=== PATIENT | female | born 1945 | race Hispanic/Latino ===

== ENCOUNTER 2022-08-30 11:30 | Emergency (ER) | payer OTHER, MEDICARE ==
[~2022-08-30] VITALS: Ht 157.5 cm; Wt 56.7 kg
[~2022-08-30 11:30] MED LIST: AEC81 PO; AMLO-258 PO; CARV6.2579 PO; GLIP5TAB11 PO; METF-444 PO
[2022-08-30 11:40] VITALS: BP 162/71
[2022-08-30] MEDS ORDERED: 0.9%NACL 1000ML 1,000 ML IV ONE (12:30)
[2022-08-30 12:48] LABS: BASOPHILS % (AUTO) 0.6 % (0.0-5.0); EOSINOPHILS % (AUTO) 1.6 % (0.0-8.0); HEMATOCRIT 37.3 % (36-48); LYMPHOCYTES % (AUTO) 15.6 % (21.0-51.0); MEAN CORPUSCULAR HEMOGLOBIN 30.4 pg (27.0-33.0); MEAN CORPUSCULAR HGB CONC 33.2 g/dL (32.0-36.0); MEAN CORPUSCULAR VOLUME 91.4 fL (79-99); MONOCYTES % (AUTO) 5.7 % (3.0-13.0); NEUTROPHILS % (AUTO) 76.2 % (40.0-77.0); PLATELET COUNT (AUTO) 318 K/uL (130-400); RED BLOOD CELL COUNT(AUTO) 4.08 MIL/uL (4.00-5.50); RED CELL DISTRIBUTION WIDTH 13.8 % (11.0-15.5)
[2022-08-30 13:02] LABS: CREATININE 0.8 mg/dL (0.5-1.5); POTASSIUM 4.2 mmol/L (3.5-5.1)
[2022-08-30 13:10] LABS: ALBUMIN 4.1 g/dL (3.5-5.0); TOTAL PROTEIN, SERUM 8.2 g/dL (6.0-8.3)
[2022-08-30] MEDS ORDERED: MECL-160 PO (14:09)
== END 2022-08-30 15:00 | disposition home or self-care (01) ==
LOC: EDH 11:30
DX: R42 Dizziness and giddiness (principal); E11.9 Type 2 diabetes mellitus without complications; I10 Essential (primary) hypertension; Z79.82 Long term (current) use of aspirin; Z79.84 Long term (current) use of oral hypoglycemic drugs
CPT/HCPCS: 99284; 96360; 70450; 82550; 83874; 84484; 80053; 85025; 36415; 93005; J7030

== ENCOUNTER 2023-08-13 20:28 | Inpatient (IN) | payer OTHER, MEDICARE ==
[~2023-08-13] VITALS: Ht 152.4 cm; Wt 55.3 kg
[~2023-08-13 20:28] MED LIST changes: -GLIP5TAB11 PO; +GLIP5TAB15 PO; +MECL-302 PO
[2023-08-13] MEDS: KETAMINE 50MG/ML SYRINGE 50 MG/ML DISP.SYRIN IV ONE (20:29)
[2023-08-13 20:38] VITALS: PULSE 93; O2SAT 100
[2023-08-13 20:50] LABS: ABG BASE EXCESS -10.7 mmol/L (-2.0-3.0); ABG HCO3 16.6 mmol/L (21.0-28.0); ABG OXYGEN SATURATION 99.6 % (95.0-99.0); ABG PCO2 42 mmHg (32-45); ABG PH 7.213 (7.35-7.450); CARBON MONOXIDE 0.3; HHb 0.4; PO2, ARTERIAL BG 323.6 mmHg (83.0-108.0); VENT MODE, BG AC-VC (ROOM AIR)
[2023-08-13 20:52] LABS: BASOPHILS # (AUTO) 0.09 K/uL (0.00-0.20); EOSINOPHILS # (AUTO) 0.26 K/uL (0.00-0.70); EOSINOPHILS % (AUTO) 2.8 % (0.0-8.0); HEMATOCRIT 34.3 % (36-48); IMMATURE GRANULOCYTE ABSOLUTE 0.06 K/uL (0-1); LYMPHOCYTES # (AUTO) 3.5 K/uL (1.0-4.8); LYMPHOCYTES % (AUTO) 37.5 % (21.0-51.0); MEAN CORPUSCULAR HEMOGLOBIN 31.7 pg (27.0-33.0); MEAN CORPUSCULAR HGB CONC 32.9 g/dL (32.0-36.0); MEAN CORPUSCULAR VOLUME 96.1 fL (79-99); MONOCYTES # (AUTO) 0.8 K/uL (0.1-1.0); MONOCYTES % (AUTO) 8.1 % (3.0-13.0); NEUTROPHILS # (AUTO) 4.7 K/uL (1.8-7.7); PLATELET COUNT (AUTO) 321 K/uL (130-400); RED BLOOD CELL COUNT(AUTO) 3.57 MIL/uL (4.00-5.50); RED CELL DISTRIBUTION WIDTH 13.9 % (11.0-15.5); WHITE BLOOD COUNT (AUTO) 9.3 K/uL (4.8-10.8)
[2023-08-13] MEDS: FENTANYL CITRATE PF 50 MCG/1 ML 2ML VIAL IVP ONE (20:55)
[2023-08-13] MEDS: FENTANYL 1000MCG+NS 100ML 100 ML IV SCH (20:57)
[2023-08-13] MEDS: MIDAZOLAM HCL 50 MG in 0.9%NACL 50ML 50 ML IV SCH (20:57)
[2023-08-13 21:03] LABS: APPEARANCE,URINE CLOUDY (CLEAR); BILIRUBIN,URINE NEGATIVE (NEGATIVE); COLOR,URINE LIGHT-YELLOW (YELLOW); GLUCOSE, URINE (UA) 30 mg/dL (NEGATIVE); KETONES,URINE NEGATIVE (NEGATIVE); LEUKOCYTE ESTERASE ,URINE 250 Leu/uL (NEGATIVE); NITRATE,URINE NEGATIVE (NEGATIVE); OCCULT BLOOD,URINE NEGATIVE (NEGATIVE); PH,URINE 5.5 (5.0-8.0); PROTEIN,URINE 50 mg/dL (NEGATIVE); UROBILINOGEN,URINE 0.2 mg/dL (0.2-1.0)
[2023-08-13 21:03] LABS: INR 0.97 (0.85-1.15); PROTHROMBIN TIME 11.5 SEC (9.6-11.6)
[2023-08-13 21:04] LABS: CREATININE 1.2 mg/dL (0.5-1.0); PARTIAL THROMBOPLASTIN TIME 29.9 SEC (26.3-35.5); POTASSIUM 4.7 mmol/L (3.5-5.1)
[2023-08-13 21:05] LABS: ADD UA MICROSCOPIC YES
[2023-08-13 21:07] LABS: BACTERIA,URINE MOD /HPF (None Seen); MUCUS,URINE RARE LPF (None Seen); SQUAMOUS EPITHELIAL CELL,UR RARE /HPF (0-2); WBC,URINE 26-50 /HPF (0-1)
[2023-08-13 21:08] LABS: ALBUMIN 3.4 g/dL (3.5-5.0); BILIRUBIN,TOTAL 0.4 mg/dL (0.2-1.0); MAGNESIUM 1.7 mg/dL (1.80-2.40)
[2023-08-13] MEDS: NOREPINEPHRIN 4MG/NS 250ML 250 ML IV SCH (21:32)
[2023-08-13 21:34] LABS: B-TYPE NATRIURETIC PEPTIDE 943 pg/mL (0-100)
[2023-08-13] MEDS: NOREPINEPHRIN 4MG/NS 250ML 250 ML IV ONE (21:44)
[2023-08-13] MEDS ORDERED: IOHEXOL 350 MG/ML 100ML INFUS..BTL IV ONE (22:03)
[2023-08-13] MEDS: CEFTRIAXONE 2GM VIAL IVPB STA (22:52)
[2023-08-13] MEDS: FUROSEMIDE 40MG VIAL IV ONE (22:53)
[2023-08-13] MEDS ORDERED: D5W-1/2 NS/20MEQ KCL 1,000 ML IV SCH (23:30)
[2023-08-13] MEDS ORDERED: MANNITOL 20% 250ML IV.SOLN IV SCH (23:30)
[2023-08-13 23:54] LABS: CREATININE 1.1 mg/dL (0.5-1.0); POTASSIUM 5.5 mmol/L (3.5-5.1)
[2023-08-13] MEDS: MAGNESIUM 2GM PREMIX 50ML 50 ML IV SCH (23:58)
[2023-08-14] VITALS (69 sets, daily range): BP systolic 86–153; BP diastolic 43–69; PULSE 70–91; RESP 16–22; O2SAT 98–100
[2023-08-14] MEDS: INSULIN REGULAR, HUMAN 3ML 100 UNIT in 0.9%NACL 100ML 100 ML IV SCH (00:11)
[2023-08-14] MEDS: 0.9%NACL 1000ML 1,000 ML IV SCH (00:12)
[2023-08-14 00:42] LABS: SARS-CoV-2, RNA, NAAT NEGATIVE SARS CoV-2 (NEGATIVE)
[2023-08-14 01:05] LABS: INFLUENZA TYPE A NEGATIVE FOR TYPE A (NEG); INFLUENZA TYPE B NEGATIVE FOR TYPE B (NEG)
[2023-08-14] MEDS ORDERED: ONDANSETRON 4MG INJ IV PRN (03:00)
[2023-08-14 04:00] LABS: ABG BASE EXCESS -2.1 mmol/L (-2.0-3.0); ABG OXYGEN SATURATION 97.6 % (95.0-99.0); ABG PCO2 35 mmHg (32-45); ABG PH 7.411 (7.35-7.450); CARBON MONOXIDE 0.3; DEVICE COMMENT RR RN STE; HHb 2.4; PO2, ARTERIAL BG 100.8 mmHg (83.0-108.0); VENT MODE, BG AC (ROOM AIR)
[2023-08-14 04:16] LABS: BASOPHILS # (AUTO) 0.04 K/uL (0.00-0.20); BASOPHILS % (AUTO) 0.4 % (0.0-5.0); EOSINOPHILS # (AUTO) 0.02 K/uL (0.00-0.70); EOSINOPHILS % (AUTO) 0.2 % (0.0-8.0); IMMATURE GRANULOCYTE ABSOLUTE 0.04 K/uL (0-1); LYMPHOCYTES # (AUTO) 1.2 K/uL (1.0-4.8); MEAN CORPUSCULAR HEMOGLOBIN 31.5 pg (27.0-33.0); MEAN CORPUSCULAR HGB CONC 34.7 g/dL (32.0-36.0); MEAN CORPUSCULAR VOLUME 90.9 fL (79-99); MONOCYTES # (AUTO) 0.8 K/uL (0.1-1.0); MONOCYTES % (AUTO) 7.5 % (3.0-13.0); NEUTROPHILS # (AUTO) 8.5 K/uL (1.8-7.7); NEUTROPHILS % (AUTO) 80.5 % (40.0-77.0); PLATELET COUNT (AUTO) 327 K/uL (130-400); RED BLOOD CELL COUNT(AUTO) 3.52 MIL/uL (4.00-5.50); RED CELL DISTRIBUTION WIDTH 13.9 % (11.0-15.5); WHITE BLOOD COUNT (AUTO) 10.6 K/uL (4.8-10.8)
[2023-08-14 04:29] LABS: CREATININE 1.1 mg/dL (0.5-1.0); POTASSIUM 3.9 mmol/L (3.5-5.1)
[2023-08-14] MEDS: FUROSEMIDE 40MG VIAL IV SCH (04:33)
[2023-08-14] MEDS: DOXYCYCLINE 100MG+NS 250ML 250 ML IV SCH (04:33)
[2023-08-14] MEDS: POTASSIUM CHLORIDE 10MEQ/100ML 100 ML IV PRN (04:37)
[2023-08-14 04:40] LABS: HEMOGLOBIN A1C 9.2 % (4.0-6.0)
[2023-08-14 04:52] LABS: B-TYPE NATRIURETIC PEPTIDE 964 pg/mL (0-100)
[2023-08-14] MEDS: ZOSYN 3.375GM +NS 50ML IV SCH (05:19)
[2023-08-14] MEDS: ENOXAPARIN SODIUM 30 MG/0.3 ML SQ SCH (09:01)
[2023-08-14] MEDS: PANTOPRAZOLE 40 MG/VIAL IVP SCH (09:01)
[2023-08-14 09:08] LABS: CREATININE 1.1 mg/dL (0.5-1.0); POTASSIUM 4.3 mmol/L (3.5-5.1)
[2023-08-14] MEDS ORDERED: LOSA100T59 PO (09:45)
[2023-08-14] MEDS: NEOMY SULF/BACITRA/POLYMYXIN B 1 EACH PACKET TP ONE (10:31)
[2023-08-14] MEDS: INSULIN GLARGINE 100 UNITS/ML 10 ML VIAL SQ ONE (11:39)
[2023-08-14 12:23] LABS: POTASSIUM 3.9 mmol/L (3.5-5.1)
[2023-08-14] MEDS: INSULIN HUMULIN R 100 UNIT/ML 3ML SQ SCH (16:30)
[2023-08-14] MEDS: MIDAZOLAM 50MG-0.9% NS 50ML 50 ML IV SCH (20:43)
[2023-08-14] MEDS: INSULIN GLARGINE 100 UNITS/ML 10 ML VIAL SQ SCH (20:45)
[2023-08-15] VITALS (79 sets, daily range): BP systolic 83–160; BP diastolic 41–81; PULSE 74–101; RESP 15–26; TEMP 101.4; O2SAT 97–100
[2023-08-15 03:38] LABS: BASOPHILS # (AUTO) 0.06 K/uL (0.00-0.20); BASOPHILS % (AUTO) 0.6 % (0.0-5.0); EOSINOPHILS # (AUTO) 0.09 K/uL (0.00-0.70); EOSINOPHILS % (AUTO) 0.9 % (0.0-8.0); HEMATOCRIT 30.7 % (36-48); IMMATURE GRANULOCYTE ABSOLUTE 0.05 K/uL (0-1); LYMPHOCYTES # (AUTO) 1.3 K/uL (1.0-4.8); LYMPHOCYTES % (AUTO) 12.7 % (21.0-51.0); MEAN CORPUSCULAR HEMOGLOBIN 31.2 pg (27.0-33.0); MEAN CORPUSCULAR HGB CONC 33.9 g/dL (32.0-36.0); MEAN CORPUSCULAR VOLUME 92.2 fL (79-99); MONOCYTES # (AUTO) 1.5 K/uL (0.1-1.0); MONOCYTES % (AUTO) 14.8 % (3.0-13.0); NEUTROPHILS # (AUTO) 7.3 K/uL (1.8-7.7); NEUTROPHILS % (AUTO) 70.5 % (40.0-77.0); PLATELET COUNT (AUTO) 292 K/uL (130-400); RED BLOOD CELL COUNT(AUTO) 3.33 MIL/uL (4.00-5.50); RED CELL DISTRIBUTION WIDTH 14.3 % (11.0-15.5); WHITE BLOOD COUNT (AUTO) 10.4 K/uL (4.8-10.8)
[2023-08-15 03:49] LABS: CREATININE 1.3 mg/dL (0.5-1.0); MAGNESIUM 1.5 mg/dL (1.80-2.40); POTASSIUM 3.4 mmol/L (3.5-5.1)
[2023-08-15 03:57] LABS: ABG BASE EXCESS 0.5 mmol/L (-2.0-3.0); ABG HCO3 24.4 mmol/L (21.0-28.0); ABG OXYGEN SATURATION 96.7 % (95.0-99.0); ABG PCO2 37 mmHg (32-45); ABG PH 7.434 (7.35-7.450); PO2, ARTERIAL BG 84.3 mmHg (83.0-108.0); VENT MODE, BG ACVC (ROOM AIR)
[2023-08-15 04:31] LABS: B-TYPE NATRIURETIC PEPTIDE 278 pg/mL (0-100)
[2023-08-15] MEDS: ACETAMINOPHEN 650 MG/20.3 ML UDCUP ONE (08:57)
[2023-08-15] MEDS: ACETAMINOPHEN 650 MG/20.3 ML UDCUP PEG PRN (14:39)
[2023-08-15] MEDS ORDERED: VANCOMYCIN PROTOCOL PER PHARMACY IV SCH (19:00)
[2023-08-15] MEDS: VANCOMYCIN 1G/250ML KIT 250 ML IV ONE (20:28)
[2023-08-15] MEDS: MEROPENEM 1 GM in 0.9%NACL 100ML 100 ML IV SCH (20:28)
[2023-08-15] MEDS: DEXMEDETOMIDINE 400MCG/NS100ML IV SCH (22:03)
[2023-08-16] VITALS (88 sets, daily range): BP systolic 94–171; BP diastolic 38–88; PULSE 67–119; RESP 16–35; O2SAT 97–100
[2023-08-16 03:52] LABS: ABG BASE EXCESS -0.7 mmol/L (-2.0-3.0); ABG HCO3 22.7 mmol/L (21.0-28.0); ABG OXYGEN SATURATION 96.7 % (95.0-99.0); ABG PCO2 34 mmHg (32-45); ABG PH 7.442 (7.35-7.450); PO2, ARTERIAL BG 84.2 mmHg (83.0-108.0); VENT MODE, BG AC (ROOM AIR)
[2023-08-16 04:42] LABS: BASOPHILS # (AUTO) 0.08 K/uL (0.00-0.20); BASOPHILS % (AUTO) 0.7 % (0.0-5.0); EOSINOPHILS # (AUTO) 0.13 K/uL (0.00-0.70); EOSINOPHILS % (AUTO) 1.1 % (0.0-8.0); HEMATOCRIT 32.9 % (36-48); IMMATURE GRANULOCYTE ABSOLUTE 0.07 K/uL (0-1); LYMPHOCYTES # (AUTO) 1.2 K/uL (1.0-4.8); LYMPHOCYTES % (AUTO) 9.9 % (21.0-51.0); MEAN CORPUSCULAR HEMOGLOBIN 30.7 pg (27.0-33.0); MEAN CORPUSCULAR HGB CONC 33.7 g/dL (32.0-36.0); MEAN CORPUSCULAR VOLUME 91.1 fL (79-99); MONOCYTES # (AUTO) 1.5 K/uL (0.1-1.0); MONOCYTES % (AUTO) 12.1 % (3.0-13.0); NEUTROPHILS # (AUTO) 9.1 K/uL (1.8-7.7); NEUTROPHILS % (AUTO) 75.6 % (40.0-77.0); PLATELET COUNT (AUTO) 302 K/uL (130-400); RED BLOOD CELL COUNT(AUTO) 3.61 MIL/uL (4.00-5.50); RED CELL DISTRIBUTION WIDTH 14.2 % (11.0-15.5)
[2023-08-16 04:57] LABS: CREATININE 1.2 mg/dL (0.5-1.0); MAGNESIUM 1.7 mg/dL (1.80-2.40); POTASSIUM 3.6 mmol/L (3.5-5.1)
[2023-08-16 05:26] LABS: B-TYPE NATRIURETIC PEPTIDE 377 pg/mL (0-100)
[2023-08-16] MEDS ORDERED: DEXMEDETOMIDINE 400MCG/NS100ML IV SCH (11:30)
[2023-08-16 18:20] LABS: MAGNESIUM 2.2 mg/dL (1.80-2.40); POTASSIUM 3.6 mmol/L (3.5-5.1)
[2023-08-16] MEDS: VANCOMYCIN 750MG VIAL IVPB SCH (18:34)
[2023-08-16] MEDS ORDERED: VANCOMYCIN 750MG 750 MG in 0.9% NACL 250ML 250 ML IVPB SCH (19:00)
[2023-08-16] MEDS: POTASSIUM CHLORIDE 20MEQ/100ML 100 ML IV PRN (20:40)
[2023-08-16] MEDS: POTASSIUM CHLORIDE 20MEQ/100ML 100 ML IV ONE (20:40)
[2023-08-17] VITALS (69 sets, daily range): BP systolic 102–174; BP diastolic 42–98; PULSE 63–118; RESP 14–28; O2SAT 97–100
[2023-08-17 04:31] LABS: ABG BASE EXCESS -1.3 mmol/L (-2.0-3.0); ABG HCO3 22.4 mmol/L (21.0-28.0); ABG OXYGEN SATURATION 95.7 % (95.0-99.0); ABG PCO2 34 mmHg (32-45); ABG PH 7.437 (7.35-7.450); CARBON MONOXIDE 0.3; HHb 4.3; PO2, ARTERIAL BG 82.6 mmHg (83.0-108.0); VENT MODE, BG AC (ROOM AIR)
[2023-08-17 04:35] LABS: BASOPHILS # (AUTO) 0.06 K/uL (0.00-0.20); BASOPHILS % (AUTO) 0.9 % (0.0-5.0); EOSINOPHILS # (AUTO) 0.28 K/uL (0.00-0.70); EOSINOPHILS % (AUTO) 4.1 % (0.0-8.0); HEMATOCRIT 33.4 % (36-48); IMMATURE GRANULOCYTE ABSOLUTE 0.01 K/uL (0-1); LYMPHOCYTES # (AUTO) 1.5 K/uL (1.0-4.8); LYMPHOCYTES % (AUTO) 22.4 % (21.0-51.0); MEAN CORPUSCULAR HEMOGLOBIN 31.6 pg (27.0-33.0); MEAN CORPUSCULAR HGB CONC 33.8 g/dL (32.0-36.0); MEAN CORPUSCULAR VOLUME 93.3 fL (79-99); MONOCYTES # (AUTO) 1.1 K/uL (0.1-1.0); MONOCYTES % (AUTO) 15.6 % (3.0-13.0); NEUTROPHILS # (AUTO) 3.9 K/uL (1.8-7.7); NEUTROPHILS % (AUTO) 56.9 % (40.0-77.0); PLATELET COUNT (AUTO) 273 K/uL (130-400); RED BLOOD CELL COUNT(AUTO) 3.58 MIL/uL (4.00-5.50); WHITE BLOOD COUNT (AUTO) 6.8 K/uL (4.8-10.8)
[2023-08-17 04:47] LABS: POTASSIUM 3.9 mmol/L (3.5-5.1)
[2023-08-17] MEDS ORDERED: MAGNESIUM 2GM PREMIX 50ML 50 ML IV PRN (14:30)
[2023-08-17] MEDS ORDERED: POTASSIUM CHLORIDE 20MEQ/100ML 100 ML IV PRN ×2 (14:30)
[2023-08-17] MEDS ORDERED: KCL 20 MEQ ERTAB PO PRN (14:30)
[2023-08-17] MEDS: GUAIFENESIN-CODEINE 5 ML SYRUP PO PRN (22:00)
[2023-08-18] VITALS (15 sets, daily range): BP systolic 120–144; BP diastolic 49–98; PULSE 88–106; RESP 14–42; O2SAT 98–100
[2023-08-18 04:00] LABS: ABG BASE EXCESS 1.5 mmol/L (-2.0-3.0); ABG OXYGEN SATURATION 97.5 % (95.0-99.0); ABG PCO2 31 mmHg (32-45); ABG PH 7.501 (7.35-7.450); CARBON MONOXIDE 0.3; DEVICE COMMENT RT RAD; HHb 2.5; PO2, ARTERIAL BG 99.7 mmHg (83.0-108.0); VENT MODE, BG 3LNC (ROOM AIR)
[2023-08-18 04:55] LABS: BASOPHILS # (AUTO) 0.03 K/uL (0.00-0.20); BASOPHILS % (AUTO) 0.3 % (0.0-5.0); EOSINOPHILS # (AUTO) 0.18 K/uL (0.00-0.70); EOSINOPHILS % (AUTO) 1.9 % (0.0-8.0); HEMATOCRIT 34.3 % (36-48); IMMATURE GRANULOCYTE ABSOLUTE 0.04 K/uL (0-1); LYMPHOCYTES # (AUTO) 1.8 K/uL (1.0-4.8); LYMPHOCYTES % (AUTO) 18.7 % (21.0-51.0); MEAN CORPUSCULAR HEMOGLOBIN 31.9 pg (27.0-33.0); MEAN CORPUSCULAR HGB CONC 34.4 g/dL (32.0-36.0); MEAN CORPUSCULAR VOLUME 92.7 fL (79-99); MONOCYTES # (AUTO) 1.7 K/uL (0.1-1.0); MONOCYTES % (AUTO) 17.8 % (3.0-13.0); NEUTROPHILS # (AUTO) 5.9 K/uL (1.8-7.7); NEUTROPHILS % (AUTO) 60.9 % (40.0-77.0); PLATELET COUNT (AUTO) 341 K/uL (130-400); RED CELL DISTRIBUTION WIDTH 13.9 % (11.0-15.5); WHITE BLOOD COUNT (AUTO) 9.6 K/uL (4.8-10.8)
[2023-08-18 05:17] LABS: ALBUMIN 3.2 g/dL (3.5-5.0); BILIRUBIN,TOTAL 0.7 mg/dL (0.2-1.0); MAGNESIUM 2.1 mg/dL (1.80-2.40); POTASSIUM 3.3 mmol/L (3.5-5.1); TOTAL PROTEIN, SERUM 7.3 g/dL (6.0-8.3)
[2023-08-18] MEDS: POTASSIUM CHLORIDE 10% ELIXIR 20 MEQ/15 ML UDCUP PO PRN (06:45)
[2023-08-18] MEDS: LACTULOSE 20 GM/30 ML UDCUP PO PRN (06:46)
[2023-08-18] MEDS: KCL 20 MEQ ERTAB PO ONE (13:07)
[2023-08-18] MEDS: FUROSEMIDE 40MG VIAL IV SCH (16:46)
[2023-08-19] VITALS (21 sets, daily range): BP systolic 110–165; BP diastolic 49–91; PULSE 89–110; RESP 14–27; O2SAT 98–100
[2023-08-19 04:42] LABS: BASOPHILS # (AUTO) 0.05 K/uL (0.00-0.20); BASOPHILS % (AUTO) 0.6 % (0.0-5.0); EOSINOPHILS # (AUTO) 0.28 K/uL (0.00-0.70); EOSINOPHILS % (AUTO) 3.3 % (0.0-8.0); HEMATOCRIT 35.1 % (36-48); IMMATURE GRANULOCYTE ABSOLUTE 0.04 K/uL (0-1); LYMPHOCYTES # (AUTO) 2.3 K/uL (1.0-4.8); LYMPHOCYTES % (AUTO) 27.2 % (21.0-51.0); MEAN CORPUSCULAR HEMOGLOBIN 31.4 pg (27.0-33.0); MEAN CORPUSCULAR HGB CONC 33.3 g/dL (32.0-36.0); MEAN CORPUSCULAR VOLUME 94.1 fL (79-99); MONOCYTES % (AUTO) 11.9 % (3.0-13.0); NEUTROPHILS # (AUTO) 4.7 K/uL (1.8-7.7); NEUTROPHILS % (AUTO) 56.5 % (40.0-77.0); PLATELET COUNT (AUTO) 338 K/uL (130-400); RED BLOOD CELL COUNT(AUTO) 3.73 MIL/uL (4.00-5.50); WHITE BLOOD COUNT (AUTO) 8.4 K/uL (4.8-10.8)
[2023-08-19 04:55] LABS: INR 0.97 (0.85-1.15); PROTHROMBIN TIME 11.5 SEC (9.6-11.6)
[2023-08-19 04:56] LABS: PARTIAL THROMBOPLASTIN TIME 26.4 SEC (26.3-35.5)
[2023-08-19 05:13] LABS: ALBUMIN 3.4 g/dL (3.5-5.0); BILIRUBIN,TOTAL 0.7 mg/dL (0.2-1.0); CREATININE 1.1 mg/dL (0.5-1.0); POTASSIUM 4.5 mmol/L (3.5-5.1); TOTAL PROTEIN, SERUM 7.6 g/dL (6.0-8.3)
[2023-08-19] MEDS ORDERED: LIDOCAINE HCL 400MG/20ML VIAL ONE (07:33)
[2023-08-19] MEDS ORDERED: FENTANYL CITRATE PF 50 MCG/1 ML 2ML VIAL ONE (07:33)
[2023-08-19] MEDS ORDERED: IOHEXOL 350 MG/ML 100ML INFUS..BTL IV ONE (07:34)
[2023-08-19] MEDS ORDERED: IOHEXOL-350 50ML VIAL IV ONE (07:34)
[2023-08-19] MEDS ORDERED: BIVALIRUDIN 250 MG/VIAL IV ONE (07:34)
[2023-08-19] MEDS ORDERED: HEPARIN 10,000 UNIT/10ML (1,000 UNIT/ML) VIAL ONE (07:34)
[2023-08-19] MEDS ORDERED: MIDAZOLAM HCL 1 MG/ML 2ML VIAL ONE (07:34)
[2023-08-19] MEDS ORDERED: NITROGLYCERIN 50MG VIAL ONE (07:35)
[2023-08-19] MEDS ORDERED: NITROGLYCERIN 4.1 GM SPRAY TL ONE (07:59)
[2023-08-20] VITALS: BP 137/61; PULSE 97; RESP 20
[2023-08-20] MEDS: DEXTROSE 50%-WATER 50 ML DISP.SYRIN IV ONE (00:10)
[2023-08-20 04:22] VITALS: BP 147/62; PULSE 81; RESP 18
[2023-08-20 05:23] LABS: BASOPHILS # (AUTO) 0.04 K/uL (0.00-0.20); BASOPHILS % (AUTO) 0.5 % (0.0-5.0); EOSINOPHILS # (AUTO) 0.15 K/uL (0.00-0.70); EOSINOPHILS % (AUTO) 1.8 % (0.0-8.0); HEMATOCRIT 33.9 % (36-48); IMMATURE GRANULOCYTE ABSOLUTE 0.03 K/uL (0-1); LYMPHOCYTES # (AUTO) 2.1 K/uL (1.0-4.8); LYMPHOCYTES % (AUTO) 25.7 % (21.0-51.0); MEAN CORPUSCULAR HEMOGLOBIN 31.6 pg (27.0-33.0); MEAN CORPUSCULAR HGB CONC 33.6 g/dL (32.0-36.0); MEAN CORPUSCULAR VOLUME 93.9 fL (79-99); MONOCYTES # (AUTO) 0.7 K/uL (0.1-1.0); MONOCYTES % (AUTO) 8.3 % (3.0-13.0); NEUTROPHILS # (AUTO) 5.2 K/uL (1.8-7.7); NEUTROPHILS % (AUTO) 63.3 % (40.0-77.0); PLATELET COUNT (AUTO) 327 K/uL (130-400); RED BLOOD CELL COUNT(AUTO) 3.61 MIL/uL (4.00-5.50); RED CELL DISTRIBUTION WIDTH 14.1 % (11.0-15.5); WHITE BLOOD COUNT (AUTO) 8.2 K/uL (4.8-10.8)
[2023-08-20 05:34] LABS: CREATININE 0.9 mg/dL (0.5-1.0); MAGNESIUM 1.9 mg/dL (1.80-2.40); POTASSIUM 4.2 mmol/L (3.5-5.1)
[2023-08-20 08:00] VITALS: BP 132/55; PULSE 91; RESP 18; O2SAT 100
[2023-08-20 12:00] VITALS: BP 120/37; PULSE 97; RESP 17
[2023-08-20 16:00] VITALS: BP 110/67; PULSE 102; RESP 18
[2023-08-20] MEDS ORDERED: INSLAN SQ (17:18)
== END 2023-08-20 19:35 | disposition home or self-care (01) | DRG 871 ==
LOC: EDH 20:28 → EDHIP 08-14 02:51 → 2CV 08-14 07:33 → 4AH 08-20 01:09
PROVIDERS: ADMIT Internal Medicine; ATTEND Internal Medicine
PROC: 0BH17EZ Insertion of Endotracheal Airway into Trachea, Via Natural or Artificial Opening (ICD-10-PCS; 2023-08-14)
PROC: 02HV33Z Insertion of Infusion Device into Superior Vena Cava, Percutaneous Approach (ICD-10-PCS; 2023-08-14)
PROC: B548ZZA Ultrasonography of Superior Vena Cava, Guidance (ICD-10-PCS; 2023-08-14)
PROC: 5A1935Z Respiratory Ventilation, Less than 24 Consecutive Hours (ICD-10-PCS; 2023-08-16)
PROC: 5A1945Z Respiratory Ventilation, 24-96 Consecutive Hours (ICD-10-PCS; 2023-08-16)
PROC: 5A09357 Assistance with Respiratory Ventilation, Less than 24 Consecutive Hours, Continuous Positive Airway Pressure (ICD-10-PCS; 2023-08-16)
PROC: 5A1935Z Respiratory Ventilation, Less than 24 Consecutive Hours (ICD-10-PCS; 2023-08-16)
PROC: 4A023N8 Measurement of Cardiac Sampling and Pressure, Bilateral, Percutaneous Approach (ICD-10-PCS; principal; 2023-08-19)
PROC: B2111ZZ Fluoroscopy of Multiple Coronary Arteries using Low Osmolar Contrast (ICD-10-PCS; 2023-08-19)
PROC: B2151ZZ Fluoroscopy of Left Heart using Low Osmolar Contrast (ICD-10-PCS; 2023-08-19)
DX: A41.9 Sepsis, unspecified organism (principal); E11.10 Type 2 diabetes mellitus with ketoacidosis without coma; J18.9 Pneumonia, unspecified organism; G92.8 Other toxic encephalopathy; J96.01 Acute respiratory failure with hypoxia; I50.33 Acute on chronic diastolic (congestive) heart failure; R65.21 Severe sepsis with septic shock; N17.9 Acute kidney failure, unspecified; I13.0 Hypertensive heart and chronic kidney disease with heart failure and stage 1 through stage 4 chronic kidney disease, or unspecified chronic kidney disease; N30.00 Acute cystitis without hematuria; Z20.822 Contact with and (suspected) exposure to COVID-19; E11.22 Type 2 diabetes mellitus with diabetic chronic kidney disease; E78.5 Hyperlipidemia, unspecified; E83.42 Hypomagnesemia; I35.0 Nonrheumatic aortic (valve) stenosis; K21.9 Gastro-esophageal reflux disease without esophagitis; I44.7 Left bundle-branch block, unspecified; N18.9 Chronic kidney disease, unspecified; Z82.49 Family history of ischemic heart disease and other diseases of the circulatory system; I25.2 Old myocardial infarction; Z83.3 Family history of diabetes mellitus
CPT/HCPCS: 31500; 36415; 36600; 70450; 71045; 71270; 80048; 80053; 80061; 81001; 82010; 82435; 82550; 82803; 82947; 82948; 83036; 83605; 83735; 83880; 83930; 83935; 84132; 84145; 84295; 84484; 85018; 85025; 85378; 85610; 85730; 87040; 87071; 87077; 87088; 87186; 87205; 87635; 87804; 92610; 93005; 93306; 93460; 94002; 94003; 94150; 96365; 96366; 96375; 99156; 99157; 99291; C1769; C1894; C9113; G0378; J0583; J0696; J1644; J1650; J1815; J1940; J2185; J2250; J2543; J3010; J3370; J3475; J3480; J3490; J7030; J7070; Q9967; A4600; A9900; C1760; Q9965

== ENCOUNTER 2023-08-30 18:38 | Inpatient (IN) | payer OTHER, MEDICARE ==
[~2023-08-30] VITALS: Ht 157.5 cm; Wt 55.7 kg
[~2023-08-30 18:38] MED LIST changes: -AMLO-258 PO; +INSLAN SQ; +LOSA100T59 PO; -MECL-302 PO
[2023-08-30 19:17] LABS: BASOPHILS % (AUTO) 1.1 % (0.0-5.0); EOSINOPHILS # (AUTO) 0.61 K/uL (0.00-0.70); EOSINOPHILS % (AUTO) 6.9 % (0.0-8.0); HEMATOCRIT 30.8 % (36-48); IMMATURE GRANULOCYTE ABSOLUTE 0.02 K/uL (0-1); LYMPHOCYTES # (AUTO) 2.1 K/uL (1.0-4.8); LYMPHOCYTES % (AUTO) 23.8 % (21.0-51.0); MEAN CORPUSCULAR HEMOGLOBIN 31.3 pg (27.0-33.0); MEAN CORPUSCULAR HGB CONC 34.1 g/dL (32.0-36.0); MEAN CORPUSCULAR VOLUME 91.9 fL (79-99); MONOCYTES # (AUTO) 0.9 K/uL (0.1-1.0); MONOCYTES % (AUTO) 10.4 % (3.0-13.0); NEUTROPHILS # (AUTO) 5.1 K/uL (1.8-7.7); NEUTROPHILS % (AUTO) 57.6 % (40.0-77.0); PLATELET COUNT (AUTO) 448 K/uL (130-400); RED BLOOD CELL COUNT(AUTO) 3.35 MIL/uL (4.00-5.50); RED CELL DISTRIBUTION WIDTH 14.5 % (11.0-15.5); WHITE BLOOD COUNT (AUTO) 8.8 K/uL (4.8-10.8)
[2023-08-30 19:29] LABS: CREATININE 1.1 mg/dL (0.5-1.0); POTASSIUM 4.2 mmol/L (3.5-5.1)
[2023-08-30 19:36] LABS: SARS-CoV-2, RNA, NAAT NEGATIVE SARS CoV-2 (NEGATIVE)
[2023-08-30 19:44] LABS: INFLUENZA TYPE A Negative For Type A (NEGATIVE); INFLUENZA TYPE B Negative For Type B (NEGATIVE)
[2023-08-30] MEDS: IPRATROPIUM/ALBUTEROL SULFATE 3 ML SOLUTION IH ONE (20:24)
[2023-08-30 20:25] VITALS: PULSE 84; RESP 18
[2023-08-30] MEDS: FUROSEMIDE 20MG VIAL IV ONE (20:28)
[2023-08-30] MEDS ORDERED: LACTULOSE 20 GM/30 ML UDCUP PO PRN (20:30)
[2023-08-30] MEDS ORDERED: HYDRALAZINE 20MG/ML VIAL IV PRN (20:30)
[2023-08-30] MEDS ORDERED: POTASSIUM CHLORIDE 10MEQ SR TAB PO PRN (20:30)
[2023-08-30] MEDS ORDERED: ACETAMINOPHEN 650 MG SUPPOSITORY RC PRN (20:30)
[2023-08-30] MEDS ORDERED: ONDANSETRON 4MG INJ IVP PRN (20:30)
[2023-08-30] MEDS ORDERED: DOCUSATE SODIUM 100 MG CAP PO PRN ×2 (20:30)
[2023-08-30] MEDS ORDERED: POTASSIUM CHLORIDE 10MEQ/100ML 100 ML IV PRN (20:30)
[2023-08-30] MEDS ORDERED: KAYEXALATE 15GM/60ML PO PRN (20:30)
[2023-08-30] MEDS ORDERED: LABETALOL 20MG SYG IV PRN (20:30)
[2023-08-30 20:44] LABS: ABG BASE EXCESS 0.7 mmol/L (-2.0-3.0); ABG HCO3 24.8 mmol/L (21.0-28.0); ABG OXYGEN SATURATION 94.8 % (95.0-99.0); ABG PCO2 38 mmHg (32-45); ABG PH 7.432 (7.35-7.450); DEVICE COMMENT RR RN; VENT MODE, BG RA (ROOM AIR)
[2023-08-30] MEDS ORDERED: FAMOTIDINE 20MG TAB PO SCH (21:00)
[2023-08-30] MEDS: FUROSEMIDE 20MG VIAL IV SCH (21:00)
[2023-08-30] MEDS: SOLU-MEDROL 40MG VIAL IVP SCH (21:13)
[2023-08-30] MEDS: INSULIN GLARGINE 100 UNITS/ML 10 ML VIAL SQ SCH (21:25)
[2023-08-30] MEDS: INSULIN HUMULIN R 100 UNIT/ML 3ML SQ SCH (21:26)
[2023-08-30 22:10] LABS: ADD UA MICROSCOPIC YES; APPEARANCE,URINE CLEAR (CLEAR); BILIRUBIN,URINE NEGATIVE (NEGATIVE); COLOR,URINE COLORLESS (YELLOW); GLUCOSE, URINE (UA) NEGATIVE (NEGATIVE); KETONES,URINE NEGATIVE (NEGATIVE); LEUKOCYTE ESTERASE ,URINE NEGATIVE Leu/uL (NEGATIVE); NITRATE,URINE NEGATIVE (NEGATIVE); OCCULT BLOOD,URINE NEGATIVE (NEGATIVE); PH,URINE 6.5 (5.0-8.0); PROTEIN,URINE NEGATIVE (NEGATIVE); UROBILINOGEN,URINE 0.2 mg/dL (0.2-1.0)
[2023-08-30 22:11] LABS: SQUAMOUS EPITHELIAL CELL,UR RARE /HPF (0-2); WBC,URINE 0-1 /HPF (0-1)
[2023-08-30 22:54] VITALS: PULSE 80; RESP 18
[2023-08-30] MEDS: IPRATROPIUM/ALBUTEROL SULFATE 3 ML SOLUTION IH SCH (22:54)
[2023-08-31] VITALS (14 sets, daily range): BP systolic 107–164; BP diastolic 52–68; PULSE 70–91; RESP 17–19; O2SAT 98
[2023-08-31] MEDS: ALBUTEROL 0.083% 2.5 MG/3 ML INH IH PRN (02:18)
[2023-08-31 05:41] LABS: BASOPHILS # (AUTO) 0.02 K/uL (0.00-0.20); BASOPHILS % (AUTO) 0.3 % (0.0-5.0); HEMATOCRIT 33.4 % (36-48); IMMATURE GRANULOCYTE ABSOLUTE 0.04 K/uL (0-1); LYMPHOCYTES # (AUTO) 0.9 K/uL (1.0-4.8); LYMPHOCYTES % (AUTO) 12.9 % (21.0-51.0); MEAN CORPUSCULAR HGB CONC 34.1 g/dL (32.0-36.0); MEAN CORPUSCULAR VOLUME 93.8 fL (79-99); MONOCYTES # (AUTO) 0.1 K/uL (0.1-1.0); MONOCYTES % (AUTO) 1.2 % (3.0-13.0); NEUTROPHILS # (AUTO) 5.7 K/uL (1.8-7.7); PLATELET COUNT (AUTO) 473 K/uL (130-400); RED BLOOD CELL COUNT(AUTO) 3.56 MIL/uL (4.00-5.50); RED CELL DISTRIBUTION WIDTH 14.2 % (11.0-15.5); WHITE BLOOD COUNT (AUTO) 6.7 K/uL (4.8-10.8)
[2023-08-31 05:47] LABS: HEMOGLOBIN A1C 8.9 % (4.0-6.0)
[2023-08-31 06:08] LABS: INR 0.96 (0.85-1.15); PROTHROMBIN TIME 11.4 SEC (9.6-11.6)
[2023-08-31 06:13] LABS: AMMONIA < 10 umol/L (11-32)
[2023-08-31 06:14] LABS: ALANINE AMINOTRANSFERASE 17 U/L (12-78); ALBUMIN 3.4 g/dL (3.5-5.0); ASPARTATE AMINOTRANSFERASE 15 U/L (10-37); BILIRUBIN,DIRECT 0.1 mg/dL (0.0-0.3); BILIRUBIN,TOTAL 0.6 mg/dL (0.2-1.0); CARBON DIOXIDE 29 mmol/L (21-32); CHLORIDE 94 mmol/L (101-111); CREATINE KINASE, TOTAL 26 U/L (21-232); CREATININE 0.9 mg/dL (0.5-1.0); GLOMERULAR FILTR. RATE CALC 65 mL/min (>90); GLUCOSE,RANDOM 265 mg/dL (70-105); POTASSIUM 3.7 mmol/L (3.5-5.1); SODIUM SERUM 132 mmol/L (136-145); TOTAL PROTEIN, SERUM 7.3 g/dL (6.0-8.3); UREA NITROGEN, BLOOD 18 mg/dL (7-18)
[2023-08-31] MEDS: MAGNESIUM 2GM PREMIX 50ML 50 ML IV PRN (06:27)
[2023-08-31] MEDS: POLYETHYLENE GLYCOL 3350 17 GM POWD.PACK PO SCH (08:28)
[2023-08-31] MEDS: ASPIRIN 81 MG EC TAB PO SCH (08:28)
[2023-08-31] MEDS: LOSARTAN 100 MG TABLET PO SCH (08:28)
[2023-08-31] MEDS: PANTOPRAZOLE 40 MG TAB DR PO SCH (08:28)
[2023-08-31] MEDS: FERROUS SULFATE 325 MG TABLET.DR PO SCH (08:28)
[2023-08-31] MEDS: POTASSIUM CHLORIDE 10% ELIXIR 20 MEQ/15 ML UDCUP PO PRN (18:39)
[2023-09-01] VITALS (10 sets, daily range): BP systolic 103–125; BP diastolic 48–74; PULSE 67–98; RESP 16–20; O2SAT 96–98
[2023-09-01 05:17] LABS: ALBUMIN 3.1 g/dL (3.5-5.0); BILIRUBIN,TOTAL 0.5 mg/dL (0.2-1.0); POTASSIUM 4.2 mmol/L (3.5-5.1); TOTAL PROTEIN, SERUM 6.6 g/dL (6.0-8.3)
[2023-09-01 06:11] LABS: BASOPHILS # (AUTO) 0.04 K/uL (0.00-0.20); BASOPHILS % (AUTO) 0.4 % (0.0-5.0); EOSINOPHILS # (AUTO) 0.25 K/uL (0.00-0.70); EOSINOPHILS % (AUTO) 2.4 % (0.0-8.0); HEMATOCRIT 28.4 % (36-48); IMMATURE GRANULOCYTE ABSOLUTE 0.05 K/uL (0-1); LYMPHOCYTES # (AUTO) 2.6 K/uL (1.0-4.8); LYMPHOCYTES % (AUTO) 25.2 % (21.0-51.0); MEAN CORPUSCULAR HGB CONC 33.5 g/dL (32.0-36.0); MEAN CORPUSCULAR VOLUME 92.8 fL (79-99); MONOCYTES # (AUTO) 0.9 K/uL (0.1-1.0); MONOCYTES % (AUTO) 9.1 % (3.0-13.0); NEUTROPHILS # (AUTO) 6.4 K/uL (1.8-7.7); NEUTROPHILS % (AUTO) 62.4 % (40.0-77.0); PLATELET COUNT (AUTO) 431 K/uL (130-400); RED BLOOD CELL COUNT(AUTO) 3.06 MIL/uL (4.00-5.50); RED CELL DISTRIBUTION WIDTH 14.7 % (11.0-15.5); WHITE BLOOD COUNT (AUTO) 10.3 K/uL (4.8-10.8)
[2023-09-01 06:39] LABS: B-TYPE NATRIURETIC PEPTIDE 242 pg/mL (0-100)
[2023-09-10] MEDS ORDERED: BALS60OI TP (11:47)
== END 2023-09-01 14:15 | disposition home or self-care (01) | DRG 291 ==
LOC: EDH 18:38 → EDHIP 20:27 → 3BH 23:18
PROVIDERS: ADMIT Hospitalist; ATTEND Hospitalist
DX: I11.0 Hypertensive heart disease with heart failure (principal); I50.43 Acute on chronic combined systolic (congestive) and diastolic (congestive) heart failure; J96.01 Acute respiratory failure with hypoxia; N17.9 Acute kidney failure, unspecified; F41.1 Generalized anxiety disorder; E11.65 Type 2 diabetes mellitus with hyperglycemia; Z20.822 Contact with and (suspected) exposure to COVID-19; E78.5 Hyperlipidemia, unspecified; Z87.01 Personal history of pneumonia (recurrent)
CPT/HCPCS: 36415; 36600; 71045; 80048; 80053; 80076; 81001; 82140; 82550; 82803; 82948; 83036; 83605; 83735; 83880; 84145; 84443; 84484; 85025; 85378; 85610; 85730; 87088; 87635; 87804; 93005; 94640; 94664; 96372; 96374; 96375; G0378; J1815; J1940; J2920; J3475